=== PATIENT | male | born 1945 | race Caucasian/White ===

== ENCOUNTER 2017-05-07 02:17 | Inpatient (IN) | payer MEDICARE, OTHER ==
[~2017-05-07] VITALS: Ht 177.8 cm; Wt 106.2 kg
[2017-05-07] MEDS ORDERED: PIPERACILLIN/TAZO/PMX 3.375GM 50 ML IVPB ONE (02:30)
[2017-05-07] MEDS ORDERED: VANCOMYCIN 1,900 MG in SODIUM CHLORIDE 0.9% 250 ML IV ONE (02:30)
[2017-05-07] MEDS ORDERED: VANCOMYCIN PER PHARMACY IV ONE (02:30)
[2017-05-07] MEDS ORDERED: SODIUM CHLORIDE 0.9% 1,000ML IVBOLUS ONE ×3 (02:30→06:00)
[2017-05-07] MEDS ORDERED: LEVO50TA5 PO (02:33)
[2017-05-07] MEDS ORDERED: METO25TA35 PO (02:33)
[2017-05-07] MEDS ORDERED: GLIP10TA13 PO (02:33)
[2017-05-07] MEDS ORDERED: SIMV40TA3 PO (02:33)
[2017-05-07] MEDS ORDERED: APIX5TAB PO (02:33)
[2017-05-07] MEDS ORDERED: CHOL200021 PO (02:33)
[2017-05-07] MEDS ORDERED: LOSA25TA5 PO (02:33)
[2017-05-07] MEDS ORDERED: FURO80TA3 PO (02:33)
[2017-05-07] MEDS ORDERED: ALLO300T PO (02:33)
[2017-05-07 02:42] LABS: HEMATOCRIT 36.8 % (39.2-51.8); HEMOGLOBIN 11.4 g/dL (13.7-18.0); WHITE BLOOD COUNT 13.7 x10^3/uL (3.4-10)
[2017-05-07 02:53] LABS: ASPARTATE AMINO TRANSFERASE 25 U/L (15-37); BLOOD UREA NITROGEN 41 mg/dL (7-18)
[2017-05-07] MEDS ORDERED: PIPERACILLIN/TAZO/PMX 3.375GM 50 ML ONE (03:02)
[2017-05-07 03:05] LABS: IS PT STATUS REG ER OR PRE ER? YES
[2017-05-07] MEDS ORDERED: MIDAZOLAM HCL 25 MG in SODIUM CHLORIDE 0.9% 245 ML IV PRN ×2 (03:18→07:30)
[2017-05-07 04:10] LABS: DAU SCREEN DISCLAIMER
[2017-05-07] MEDS ORDERED: MIDAZOLAM 1 MG/ML, 5ML ONE ×3 (04:14→08:00)
[2017-05-07 04:51] LABS: ABG COLLECTION SITE LEFT RADIAL; COLLATERAL CIRCULATION TESTING NORMAL
[2017-05-07] MEDS ORDERED: SODIUM CHLORIDE 0.9% 1,000 ML IV SCH (05:30)
[2017-05-07] MEDS ORDERED: MIDAZOLAM 1 MG/ML, 5ML IVPush ONE ×3 (05:30)
[2017-05-07] MEDS ORDERED: MIDAZOLAM 1 MG/ML, 2ML IVPush ONE ×2 (05:30)
[2017-05-07] MEDS ORDERED: PROPOFOL 100 ML IV PRN (05:30)
[2017-05-07] MEDS ORDERED: FENTANYL PF 100 MCG/2ML ONE (05:53)
[2017-05-07] MEDS ORDERED: FENTANYL PF 100 MCG/2ML IV ONE (06:00)
[2017-05-07] MEDS ORDERED: SODIUM CHLORIDE 0.9% 1,000 ML IV ONE (06:19)
[2017-05-07] MEDS ORDERED: ONDANSETRON 2MG/ML, 2ML IVPush PRN ×2 (06:30→07:30)
[2017-05-07] MEDS ORDERED: BISACODYL 10 MG SUPP PR PRN (07:30)
[2017-05-07] MEDS ORDERED: POLYETHYLENE GLYCOL 17 GM PACKET PO PRN (07:30)
[2017-05-07] MEDS ORDERED: SENNOSIDES 8.8 MG/5 ML ORAL SOL NG PRN (07:30)
[2017-05-07] MEDS ORDERED: LACTULOSE 20 GM/30 ML UDC NG PRN (07:30)
[2017-05-07] MEDS ORDERED: PHARMACY MAY ADJ FOR RENAL FX MC SCH (07:30)
[2017-05-07] MEDS: INSULIN ASPART 100 UNITS/ML, PEN SQ-INSULIN SCH ×4 (07:30→21:51)
[2017-05-07] MEDS ORDERED: LIDOCAINE-MPF 1%, 2ML ENDO PRN (07:30)
[2017-05-07] MEDS ORDERED: SENNA/DOCUSATE TABLET NG PRN (07:30)
[2017-05-07] MEDS ORDERED: ACETAMINOPHEN 325 MG TABLET PO PRN (07:30)
[2017-05-07] MEDS ORDERED: OXYcodone IR 5MG TABLET PO PRN (07:30)
[2017-05-07] MEDS ORDERED: LORazepam 2 MG/ML, 1ML IVPush PRN (07:30)
[2017-05-07] MEDS ORDERED: morphine SULFATE 10 MG/ML, 1ML IVPush PRN (07:30)
[2017-05-07] MEDS ORDERED: ALBUTEROL/IPRATROPIUM 2.5MG/0.5MG, 3 ML ONE ×2 (07:32→10:47)
[2017-05-07] MEDS: ALBUTEROL/IPRATROPIUM 2.5MG/0.5MG, 3 ML INLINE SCH ×5 (07:40→23:00)
[2017-05-07] MEDS ORDERED: PROPOFOL 10 MG/ML, 100ML IV ONE (08:00)
[2017-05-07] MEDS ORDERED: ETOMIDATE 20 MG/10 ML ONE (08:00)
[2017-05-07] MEDS ORDERED: ROCURONIUM 10 MG/ML ONE (08:00)
[2017-05-07] MEDS: NOREPINEPHRINE 4 MG in SODIUM CHLORIDE 0.9% 246 ML IV PRN ×2 (08:04→23:36)
[2017-05-07] MEDS: SODIUM CHLORIDE 0.9% 1,000 ML IV SCH ×3 (08:13→23:36)
[2017-05-07] MEDS: VANCOMYCIN 50 MG/ML ORAL SUSP PO SCH ×3 (08:33→20:10)
[2017-05-07] MEDS: HEPARIN 5,000 UNITS/ML, 1ML SQ SCH ×3 (08:34→23:01)
[2017-05-07] MEDS: SENNA/DOCUSATE TABLET PO SCH (08:34)
[2017-05-07] MEDS: PROPOFOL 100 ML IV PRN ×2 (09:49→20:10)
[2017-05-07 10:25] LABS: IS PT STATUS REG ER OR PRE ER? NO
[2017-05-07] MEDS: PANTOPRAZOLE 40 MG IV IVPush SCH (11:05)
[2017-05-07] MEDS: LACTULOSE 20 GM/30 ML UDC NG SCH ×3 (11:05→21:42)
[2017-05-07 13:40] LABS: IS PT STATUS REG ER OR PRE ER? NO
[2017-05-07] MEDS: HYDROCORTISONE 100 MG INJ. IVPush SCH ×2 (15:09→23:00)
[2017-05-08] MEDS: VANCOMYCIN 50 MG/ML ORAL SUSP PO SCH ×4 (01:41→20:40)
[2017-05-08] MEDS: ALBUTEROL/IPRATROPIUM 2.5MG/0.5MG, 3 ML INLINE SCH ×6 (02:06→23:00)
[2017-05-08 04:00] VITALS: BP 118/60
[2017-05-08 04:12] LABS: HEMATOCRIT 34.1 % (39.2-51.8); HEMOGLOBIN 10.7 g/dL (13.7-18.0); WHITE BLOOD COUNT 8.1 x10^3/uL (3.4-10)
[2017-05-08 04:21] LABS: ASPARTATE AMINO TRANSFERASE 14 U/L (15-37); BLOOD UREA NITROGEN 40 mg/dL (7-18)
[2017-05-08] MEDS: HYDROCORTISONE 100 MG INJ. IVPush SCH ×3 (06:11→22:05)
[2017-05-08] MEDS: PROPOFOL 100 ML IV PRN ×3 (06:48→17:48)
[2017-05-08] MEDS: HEPARIN 5,000 UNITS/ML, 1ML SQ SCH ×3 (07:59→23:59)
[2017-05-08] MEDS: SODIUM CHLORIDE 0.9% 1,000 ML IV SCH ×3 (08:00→22:05)
[2017-05-08] MEDS: PANTOPRAZOLE 40 MG IV IVPush SCH (08:00)
[2017-05-08] MEDS: NOREPINEPHRINE 4 MG in SODIUM CHLORIDE 0.9% 246 ML IV PRN (08:09)
[2017-05-08] MEDS: INSULIN ASPART 100 UNITS/ML, PEN SQ-INSULIN SCH ×4 (08:14→20:48)
[2017-05-08] MEDS: SENNA/DOCUSATE TABLET PO SCH (09:00)
[2017-05-08] MEDS: LACTULOSE 20 GM/30 ML UDC NG SCH ×3 (09:21→20:40)
[2017-05-08] MEDS: LEVOTHYROXINE 100 MCG INJ IVPush SCH (09:21)
[2017-05-08] MEDS ORDERED: LIDOCAINE 1%, 20ML ONE (10:58)
[2017-05-08 11:41] LABS: CYTOLOGY BODY FLUID RECD INTO PATHOLOGY; CYTOLOGY BODY FLUID SOURCE PLEURAL FLUID
[2017-05-08 13:05] LABS: CELLS COUNTED 24; DILUTION 3; WBC SQUARES COUNTED 9
[2017-05-08] MEDS ORDERED: SENNA/DOCUSATE TABLET NG PRN (20:00)
[2017-05-08] MEDS ORDERED: ONDANSETRON 2MG/ML, 2ML IVPush PRN (20:00)
[2017-05-08] MEDS ORDERED: morphine SULFATE 10 MG/ML, 1ML IVPush PRN (20:00)
[2017-05-08] MEDS ORDERED: SENNOSIDES 8.8 MG/5 ML ORAL SOL NG PRN (20:00)
[2017-05-08] MEDS ORDERED: PHARMACY MAY ADJ FOR RENAL FX MC SCH (20:00)
[2017-05-08] MEDS ORDERED: ACETAMINOPHEN 325 MG TABLET PO PRN (20:00)
[2017-05-08] MEDS ORDERED: LORazepam 2 MG/ML, 1ML IVPush PRN (20:00)
[2017-05-08] MEDS ORDERED: POLYETHYLENE GLYCOL 17 GM PACKET PO PRN (20:00)
[2017-05-08] MEDS ORDERED: LACTULOSE 20 GM/30 ML UDC NG PRN (20:00)
[2017-05-08] MEDS ORDERED: BISACODYL 10 MG SUPP PR PRN (20:00)
[2017-05-09] MEDS: VANCOMYCIN 50 MG/ML ORAL SUSP PO SCH ×4 (02:14→19:44)
[2017-05-09] MEDS: ALBUTEROL/IPRATROPIUM 2.5MG/0.5MG, 3 ML INLINE SCH ×6 (03:00→21:42)
[2017-05-09 04:30] LABS: HEMATOCRIT 33.3 % (39.2-51.8); HEMOGLOBIN 10.3 g/dL (13.7-18.0); WHITE BLOOD COUNT 4.8 x10^3/uL (3.4-10)
[2017-05-09 04:41] LABS: BLOOD UREA NITROGEN 39 mg/dL (7-18)
[2017-05-09 05:00] LABS: ABG COLLECTION SITE ARTERIAL LINE
[2017-05-09 05:02] VITALS: BP 124/68
[2017-05-09] MEDS: PROPOFOL 100 ML IV PRN ×4 (05:14→19:50)
[2017-05-09] MEDS: HYDROCORTISONE 100 MG INJ. IVPush SCH ×3 (06:17→22:31)
[2017-05-09] MEDS: SODIUM CHLORIDE 0.9% 1,000 ML IV SCH ×3 (06:17→23:46)
[2017-05-09] MEDS: LEVOTHYROXINE 100 MCG INJ IVPush SCH (06:17)
[2017-05-09] MEDS: INSULIN ASPART 100 UNITS/ML, PEN SQ-INSULIN SCH ×4 (07:30→19:46)
[2017-05-09] MEDS: HEPARIN 5,000 UNITS/ML, 1ML SQ SCH ×3 (08:05→23:46)
[2017-05-09] MEDS: PANTOPRAZOLE 40 MG IV IVPush SCH (08:05)
[2017-05-09] MEDS ORDERED: VANCOMYCIN PER PHARMACY MC PRN (09:00)
[2017-05-09] MEDS: SENNA/DOCUSATE TABLET PO SCH (09:00)
[2017-05-09] MEDS ORDERED: PHARMACOKINETIC MONITORING MC PRN (09:00)
[2017-05-09] MEDS: LACTULOSE 20 GM/30 ML UDC NG SCH ×3 (10:38→21:33)
[2017-05-09] MEDS: PIPERACILLIN/TAZO/PMX 3.375GM 50 ML IV SCH ×3 (10:38→21:33)
[2017-05-09] MEDS: VANCOMYCIN 1,900 MG in SODIUM CHLORIDE 0.9% 250 ML IV SCH (10:39)
[2017-05-10] MEDS: VANCOMYCIN 50 MG/ML ORAL SUSP PO SCH (00:58)
[2017-05-10] MEDS: ALBUTEROL/IPRATROPIUM 2.5MG/0.5MG, 3 ML INLINE SCH ×6 (02:19→22:29)
[2017-05-10] MEDS: PIPERACILLIN/TAZO/PMX 3.375GM 50 ML IV SCH ×4 (03:04→22:24)
[2017-05-10] MEDS: PROPOFOL 100 ML IV PRN ×4 (03:05→20:57)
[2017-05-10 03:53] VITALS: BP 154/76
[2017-05-10 04:29] LABS: ABG COLLECTION SITE RIGHT RADIAL; COLLATERAL CIRCULATION TESTING NORMAL
[2017-05-10 04:44] LABS: HEMATOCRIT 34.8 % (39.2-51.8); HEMOGLOBIN 10.7 g/dL (13.7-18.0); WHITE BLOOD COUNT 7.8 x10^3/uL (3.4-10)
[2017-05-10 04:45] LABS: BLOOD UREA NITROGEN 37 mg/dL (7-18)
[2017-05-10] MEDS: HYDROCORTISONE 100 MG INJ. IVPush SCH ×3 (06:09→20:58)
[2017-05-10] MEDS: LEVOTHYROXINE 100 MCG INJ IVPush SCH (06:10)
[2017-05-10] MEDS: INSULIN ASPART 100 UNITS/ML, PEN SQ-INSULIN SCH ×4 (06:13→20:57)
[2017-05-10] MEDS: PANTOPRAZOLE 40 MG IV IVPush SCH (07:37)
[2017-05-10] MEDS: HEPARIN 5,000 UNITS/ML, 1ML SQ SCH ×2 (07:37→16:55)
[2017-05-10] MEDS: SODIUM CHLORIDE 0.9% 1,000 ML IV SCH ×2 (07:47→16:56)
[2017-05-10] MEDS: LACTULOSE 20 GM/30 ML UDC NG SCH ×3 (09:09→20:57)
[2017-05-10] MEDS: SENNA/DOCUSATE TABLET PO SCH (09:10)
[2017-05-10] MEDS: VANCOMYCIN 1,900 MG in SODIUM CHLORIDE 0.9% 250 ML IV SCH (20:58)
[2017-05-11] MEDS: SODIUM CHLORIDE 0.9% 1,000 ML IV SCH ×3 (00:01→21:14)
[2017-05-11] MEDS: HEPARIN 5,000 UNITS/ML, 1ML SQ SCH ×3 (00:03→18:38)
[2017-05-11] MEDS: ALBUTEROL/IPRATROPIUM 2.5MG/0.5MG, 3 ML INLINE SCH ×6 (01:51→21:41)
[2017-05-11] MEDS: PROPOFOL 100 ML IV PRN ×4 (02:27→23:29)
[2017-05-11] MEDS: PIPERACILLIN/TAZO/PMX 3.375GM 50 ML IV SCH ×4 (02:27→21:15)
[2017-05-11 04:23] VITALS: BP 117/61
[2017-05-11 04:46] LABS: HEMATOCRIT 31.8 % (39.2-51.8); HEMOGLOBIN 9.9 g/dL (13.7-18.0); WHITE BLOOD COUNT 9.2 x10^3/uL (3.4-10)
[2017-05-11 04:58] LABS: BLOOD UREA NITROGEN 33 mg/dL (7-18)
[2017-05-11 05:56] LABS: ABG COLLECTION SITE RIGHT RADIAL; COLLATERAL CIRCULATION TESTING NORMAL
[2017-05-11] MEDS: LEVOTHYROXINE 100 MCG INJ IVPush SCH (06:09)
[2017-05-11] MEDS: HYDROCORTISONE 100 MG INJ. IVPush SCH ×3 (06:10→22:23)
[2017-05-11] MEDS ORDERED: MORPHINE SULFATE 4 MG/ML, 1ML ONE (07:34)
[2017-05-11] MEDS: PANTOPRAZOLE 40 MG IV IVPush SCH (08:36)
[2017-05-11] MEDS: INSULIN ASPART 100 UNITS/ML, PEN SQ-INSULIN SCH ×4 (08:36→21:16)
[2017-05-11] MEDS: LACTULOSE 20 GM/30 ML UDC NG SCH ×3 (10:05→21:15)
[2017-05-11] MEDS: POTASSIUM CHLORIDE 20 MEQ TAB.ER.PRT PO SCH ×2 (10:05→21:15)
[2017-05-11] MEDS: QUETIAPINE 25MG TABLET PO SCH ×2 (10:06→18:38)
[2017-05-11] MEDS: SENNA/DOCUSATE TABLET PO SCH (10:07)
[2017-05-11] MEDS: MORPHINE SULFATE 4 MG/ML, 1ML IVPush PRN ×3 (10:08→21:10)
[2017-05-12] MEDS: ALBUTEROL/IPRATROPIUM 2.5MG/0.5MG, 3 ML INLINE SCH ×6 (01:28→22:44)
[2017-05-12] MEDS: QUETIAPINE 25MG TABLET PO SCH ×3 (01:52→16:04)
[2017-05-12] MEDS: HEPARIN 5,000 UNITS/ML, 1ML SQ SCH ×3 (01:53→20:37)
[2017-05-12 04:21] LABS: ABG COLLECTION SITE LEFT RADIAL; COLLATERAL CIRCULATION TESTING NORMAL
[2017-05-12 04:50] LABS: HEMATOCRIT 34.1 % (39.2-51.8); HEMOGLOBIN 10.7 g/dL (13.7-18.0); WHITE BLOOD COUNT 10.7 x10^3/uL (3.4-10)
[2017-05-12] MEDS: PIPERACILLIN/TAZO/PMX 3.375GM 50 ML IV SCH ×4 (04:56→20:48)
[2017-05-12] MEDS: MORPHINE SULFATE 4 MG/ML, 1ML IVPush PRN ×3 (04:57→14:53)
[2017-05-12] MEDS: SODIUM CHLORIDE 0.9% 1,000 ML IV SCH ×3 (04:57→18:00)
[2017-05-12 04:59] VITALS: BP 130/88
[2017-05-12 04:59] LABS: BLOOD UREA NITROGEN 40 mg/dL (7-18)
[2017-05-12] MEDS: HYDROCORTISONE 100 MG INJ. IVPush SCH ×3 (06:29→22:54)
[2017-05-12] MEDS: LEVOTHYROXINE 100 MCG INJ IVPush SCH (06:30)
[2017-05-12] MEDS: PANTOPRAZOLE 40 MG IV IVPush SCH (08:10)
[2017-05-12] MEDS: INSULIN ASPART 100 UNITS/ML, PEN SQ-INSULIN SCH ×4 (08:10→21:00)
[2017-05-12] MEDS: LACTULOSE 20 GM/30 ML UDC NG SCH ×3 (10:52→20:48)
[2017-05-12] MEDS: VANCOMYCIN 1,900 MG in SODIUM CHLORIDE 0.9% 250 ML IV SCH (10:54)
[2017-05-12] MEDS: SODIUM CHLORIDE 0.45% 1,000 ML IV SCH ×2 (11:53→21:53)
[2017-05-12] MEDS ORDERED: HALOPERIDOL 5 MG/ML IV PRN (16:00)
[2017-05-12] MEDS: PROPOFOL 100 ML IV PRN ×2 (17:27→23:01)
[2017-05-12] MEDS: RIFAXIMIN 550 MG TABLET PO SCH (20:49)
[2017-05-13] MEDS: QUETIAPINE 25MG TABLET PO SCH ×3 (01:15→17:55)
[2017-05-13] MEDS: SODIUM CHLORIDE 0.9% 1,000 ML IV SCH (02:00)
[2017-05-13] MEDS: ALBUTEROL/IPRATROPIUM 2.5MG/0.5MG, 3 ML INLINE SCH ×3 (02:53→11:00)
[2017-05-13] MEDS: PIPERACILLIN/TAZO/PMX 3.375GM 50 ML IV SCH ×4 (03:06→20:44)
[2017-05-13 04:00] VITALS: BP 98/56
[2017-05-13] MEDS: HEPARIN 5,000 UNITS/ML, 1ML SQ SCH ×3 (04:16→20:17)
[2017-05-13 04:57] LABS: ABG COLLECTION SITE LEFT RADIAL; COLLATERAL CIRCULATION TESTING NORMAL
[2017-05-13] MEDS: HYDROCORTISONE 100 MG INJ. IVPush SCH ×2 (06:11→18:48)
[2017-05-13] MEDS: LEVOTHYROXINE 100 MCG INJ IVPush SCH (06:11)
[2017-05-13 06:30] LABS: HEMATOCRIT 34.2 % (39.2-51.8); HEMOGLOBIN 10.6 g/dL (13.7-18.0); WHITE BLOOD COUNT 13.9 x10^3/uL (3.4-10)
[2017-05-13] MEDS: INSULIN ASPART 100 UNITS/ML, PEN SQ-INSULIN SCH ×4 (06:33→20:43)
[2017-05-13 06:39] LABS: BLOOD UREA NITROGEN 46 mg/dL (7-18)
[2017-05-13 06:46] LABS: DIFF TOTAL CELLS COUNTED 100 CELL DIFF
[2017-05-13 07:16] LABS: VERIFY COUNTS? YES
[2017-05-13] MEDS: RIFAXIMIN 550 MG TABLET PO SCH ×2 (09:36→23:47)
[2017-05-13] MEDS: PANTOPRAZOLE 40 MG IV IVPush SCH (09:36)
[2017-05-13] MEDS: SODIUM CHLORIDE 0.45% 1,000 ML IV SCH ×2 (09:39→20:48)
[2017-05-13] MEDS ORDERED: ALBUTEROL SULFATE 2.5 MG/3 ML NPPB PRN (12:30)
[2017-05-13] MEDS ORDERED: FUROSEMIDE 40 MG/4 ML IV ONE (17:00)
[2017-05-13] MEDS ORDERED: ACETYLCYSTEINE 20%, 4ML NPPB SCH (20:00)
[2017-05-13] MEDS: ALBUTEROL SULFATE 2.5 MG/3 ML NPPB SCH (20:21)
[2017-05-14] MEDS: QUETIAPINE 25MG TABLET PO SCH ×3 (01:00→17:00)
[2017-05-14] MEDS: PIPERACILLIN/TAZO/PMX 3.375GM 50 ML IV SCH ×4 (03:08→20:30)
[2017-05-14 04:00] VITALS: BP 98/56
[2017-05-14] MEDS: HEPARIN 5,000 UNITS/ML, 1ML SQ SCH ×3 (04:04→20:08)
[2017-05-14 04:49] LABS: BLOOD UREA NITROGEN 47 mg/dL (7-18)
[2017-05-14 04:52] LABS: ABG COLLECTION SITE LEFT RADIAL; COLLATERAL CIRCULATION TESTING NORMAL
[2017-05-14 05:06] LABS: HEMATOCRIT 36.2 % (39.2-51.8); HEMOGLOBIN 11.2 g/dL (13.7-18.0)
[2017-05-14 05:36] LABS: DIFF TOTAL CELLS COUNTED 100 CELL DIFF
[2017-05-14 05:38] LABS: POLYCHROMASIA 1+; VERIFY COUNTS? YES
[2017-05-14 05:39] LABS: ANISOCYTOSIS 1+
[2017-05-14] MEDS: HYDROCORTISONE 100 MG INJ. IVPush SCH ×2 (06:15→18:38)
[2017-05-14] MEDS: LEVOTHYROXINE 100 MCG INJ IVPush SCH (06:15)
[2017-05-14] MEDS: SODIUM CHLORIDE 0.45% 1,000 ML IV SCH ×2 (06:15→18:37)
[2017-05-14] MEDS: INSULIN ASPART 100 UNITS/ML, PEN SQ-INSULIN SCH ×4 (06:34→21:00)
[2017-05-14] MEDS: ALBUTEROL SULFATE 2.5 MG/3 ML NPPB SCH ×4 (07:54→19:20)
[2017-05-14] MEDS: PANTOPRAZOLE 40 MG IV IVPush SCH (08:29)
[2017-05-14] MEDS: OXYcodone IR 5MG TABLET PO PRN (08:29)
[2017-05-14] MEDS: RIFAXIMIN 550 MG TABLET PO SCH ×2 (08:29→21:00)
[2017-05-14] MEDS ORDERED: FUROSEMIDE 40 MG/4 ML IV ONE (09:30)
[2017-05-14] MEDS ORDERED: VANCOMYCIN 1,900 MG in SODIUM CHLORIDE 0.9% 250 ML IV SCH (10:00)
[2017-05-14] MEDS: ACETYLCYSTEINE 20%, 4ML NPPB SCH ×3 (11:48→19:20)
[2017-05-14] MEDS ORDERED: SODIUM CHLORIDE 0.9%, 250ML IVBOLUS ONE ×2 (13:30→19:00)
[2017-05-15] MEDS: QUETIAPINE 25MG TABLET PO SCH ×3 (01:00→17:36)
[2017-05-15] MEDS: SODIUM CHLORIDE 0.45% 1,000 ML IV SCH ×2 (03:24→17:54)
[2017-05-15] MEDS: PIPERACILLIN/TAZO/PMX 3.375GM 50 ML IV SCH ×4 (03:24→21:08)
[2017-05-15 04:00] VITALS: BP 112/53
[2017-05-15] MEDS: HEPARIN 5,000 UNITS/ML, 1ML SQ SCH ×3 (04:01→21:07)
[2017-05-15 04:36] LABS: ABG COLLECTION SITE RIGHT RADIAL; COLLATERAL CIRCULATION TESTING NORMAL
[2017-05-15] MEDS: HYDROCORTISONE 100 MG INJ. IVPush SCH ×2 (05:56→17:35)
[2017-05-15] MEDS: LEVOTHYROXINE 100 MCG INJ IVPush SCH (05:57)
[2017-05-15 06:01] LABS: HEMATOCRIT 35.6 % (39.2-51.8); HEMOGLOBIN 11.1 g/dL (13.7-18.0); WHITE BLOOD COUNT 14.4 x10^3/uL (3.4-10)
[2017-05-15 06:26] LABS: BLOOD UREA NITROGEN 47 mg/dL (7-18)
[2017-05-15] MEDS: INSULIN ASPART 100 UNITS/ML, PEN SQ-INSULIN SCH ×4 (07:00→21:00)
[2017-05-15] MEDS: ALBUTEROL SULFATE 2.5 MG/3 ML NPPB SCH ×4 (07:25→20:00)
[2017-05-15] MEDS: ACETYLCYSTEINE 20%, 4ML NPPB SCH (07:25)
[2017-05-15] MEDS: PANTOPRAZOLE 40 MG IV IVPush SCH (07:58)
[2017-05-15] MEDS: RIFAXIMIN 550 MG TABLET PO SCH ×2 (09:00→21:08)
[2017-05-15] MEDS ORDERED: VANCOMYCIN 2,000 MG in SODIUM CHLORIDE 0.9% 500 ML IV ONE (11:00)
[2017-05-15] MEDS ORDERED: SENNA/DOCUSATE TABLET NG PRN (19:00)
[2017-05-15] MEDS ORDERED: ACETAMINOPHEN 325 MG TABLET PO PRN (19:00)
[2017-05-15] MEDS ORDERED: SENNOSIDES 8.8 MG/5 ML ORAL SOL NG PRN (19:00)
[2017-05-15] MEDS ORDERED: PHARMACY MAY ADJ FOR RENAL FX MC SCH (19:00)
[2017-05-15] MEDS ORDERED: PHARMACOKINETIC MONITORING MC PRN (19:00)
[2017-05-15] MEDS ORDERED: VANCOMYCIN PER PHARMACY MC PRN (19:00)
[2017-05-15] MEDS ORDERED: ONDANSETRON 2MG/ML, 2ML IVPush PRN (19:00)
[2017-05-15] MEDS ORDERED: BISACODYL 10 MG SUPP PR PRN (19:00)
[2017-05-15] MEDS ORDERED: POLYETHYLENE GLYCOL 17 GM PACKET PO PRN (19:00)
[2017-05-15] MEDS: METOPROLOL TARTRATE 25 MG TABLET PO SCH (21:08)
[2017-05-16] MEDS: QUETIAPINE 25MG TABLET PO SCH ×3 (00:40→17:51)
[2017-05-16] MEDS: PIPERACILLIN/TAZO/PMX 3.375GM 50 ML IV SCH ×4 (02:50→20:45)
[2017-05-16 03:56] LABS: HEMATOCRIT 36.4 % (39.2-51.8); HEMOGLOBIN 11.2 g/dL (13.7-18.0)
[2017-05-16 04:04] LABS: BLOOD UREA NITROGEN 59 mg/dL (7-18)
[2017-05-16 04:14] VITALS: BP 106/52
[2017-05-16] MEDS: HEPARIN 5,000 UNITS/ML, 1ML SQ SCH ×3 (04:40→20:45)
[2017-05-16] MEDS: HYDROCORTISONE 100 MG INJ. IVPush SCH (05:59)
[2017-05-16] MEDS: LEVOTHYROXINE 100 MCG INJ IVPush SCH (05:59)
[2017-05-16] MEDS: METOPROLOL TARTRATE 25 MG TABLET PO SCH ×2 (06:01→17:51)
[2017-05-16] MEDS: SODIUM CHLORIDE 0.45% 1,000 ML IV SCH (06:06)
[2017-05-16] MEDS: ALBUTEROL SULFATE 2.5 MG/3 ML NPPB SCH ×4 (08:03→18:55)
[2017-05-16] MEDS: PANTOPRAZOLE 40 MG IV IVPush SCH (08:13)
[2017-05-16] MEDS: INSULIN ASPART 100 UNITS/ML, PEN SQ-INSULIN SCH ×3 (08:14→23:04)
[2017-05-16] MEDS: RIFAXIMIN 550 MG TABLET PO SCH ×2 (09:09→20:45)
[2017-05-16] MEDS ORDERED: ALBUMIN HUMAN 25% 100 ML IV ONE (09:30)
[2017-05-16] MEDS ORDERED: PHARMACOKINETIC MONITORING MC PRN (10:00)
[2017-05-16] MEDS ORDERED: FUROSEMIDE 40 MG/4 ML IV ONE (11:00)
[2017-05-17] MEDS: QUETIAPINE 25MG TABLET PO SCH (02:41)
[2017-05-17] MEDS: PIPERACILLIN/TAZO/PMX 3.375GM 50 ML IV SCH ×4 (03:25→23:37)
[2017-05-17] MEDS: HEPARIN 5,000 UNITS/ML, 1ML SQ SCH ×3 (03:52→21:30)
[2017-05-17 04:00] VITALS: BP 117/61
[2017-05-17 04:20] LABS: HEMATOCRIT 33.7 % (39.2-51.8); HEMOGLOBIN 10.6 g/dL (13.7-18.0); WHITE BLOOD COUNT 12.3 x10^3/uL (3.4-10)
[2017-05-17 04:23] LABS: BLOOD UREA NITROGEN 70 mg/dL (7-18)
[2017-05-17 04:37] LABS: ABG COLLECTION SITE RIGHT RADIAL; COLLATERAL CIRCULATION TESTING NORMAL
[2017-05-17] MEDS: INSULIN ASPART 100 UNITS/ML, PEN SQ-INSULIN SCH ×4 (05:29→23:38)
[2017-05-17] MEDS: METOPROLOL TARTRATE 25 MG TABLET PO SCH (05:30)
[2017-05-17] MEDS: LEVOTHYROXINE 100 MCG INJ IVPush SCH (05:30)
[2017-05-17] MEDS ORDERED: POTASSIUM CHLORIDE 20 MEQ TAB.ER.PRT PO ONE (07:00)
[2017-05-17] MEDS: ALBUTEROL SULFATE 2.5 MG/3 ML NPPB SCH ×3 (07:43→19:36)
[2017-05-17] MEDS: PANTOPRAZOLE 40 MG IV IVPush SCH (08:26)
[2017-05-17] MEDS: HYDROCORTISONE 100 MG INJ. IVPush SCH (09:30)
[2017-05-17] MEDS: RIFAXIMIN 550 MG TABLET PO SCH ×2 (09:30→21:30)
[2017-05-17] MEDS: ALBUMIN HUMAN 25% 100 ML IV SCH ×2 (10:20→17:21)
[2017-05-17 11:15] VITALS: BP 147/92
[2017-05-17 14:26] VITALS: BP 144/79
[2017-05-17 19:10] VITALS: BP 131/79
[2017-05-18] MEDS: ALBUMIN HUMAN 25% 100 ML IV SCH ×3 (01:44→21:36)
[2017-05-18 02:22] VITALS: BP 128/78
[2017-05-18 05:35] LABS: HEMATOCRIT 33.5 % (39.2-51.8); HEMOGLOBIN 10.6 g/dL (13.7-18.0); WHITE BLOOD COUNT 13.4 x10^3/uL (3.4-10)
[2017-05-18 05:47] LABS: BLOOD UREA NITROGEN 65 mg/dL (7-18)
[2017-05-18] MEDS ORDERED: DIPHENHYDRAMINE 50 MG/ML, 1ML IVPush ONE (06:00)
[2017-05-18] MEDS: INSULIN ASPART 100 UNITS/ML, PEN SQ-INSULIN SCH ×4 (06:21→21:36)
[2017-05-18] MEDS: PIPERACILLIN/TAZO/PMX 3.375GM 50 ML IV SCH ×3 (06:22→17:54)
[2017-05-18] MEDS: HEPARIN 5,000 UNITS/ML, 1ML SQ SCH (06:23)
[2017-05-18] MEDS: LEVOTHYROXINE 50 MCG TABLET PO SCH (06:33)
[2017-05-18 07:07] VITALS: BP 138/78
[2017-05-18] MEDS: ALBUTEROL SULFATE 2.5 MG/3 ML NPPB SCH ×5 (07:50→21:50)
[2017-05-18] MEDS: RIFAXIMIN 550 MG TABLET PO SCH ×2 (08:33→21:40)
[2017-05-18] MEDS: PANTOPRAZOLE 40 MG IV IVPush SCH (08:33)
[2017-05-18] MEDS: HYDROCORTISONE 100 MG INJ. IVPush SCH (08:33)
[2017-05-18 14:05] VITALS: BP 149/84
[2017-05-18 19:39] VITALS: BP 152/84
[2017-05-19] VITALS (8 sets, daily range): BP systolic 125–158; BP diastolic 64–83
[2017-05-19] MEDS: PIPERACILLIN/TAZO/PMX 3.375GM 50 ML IV SCH ×4 (01:59→21:03)
[2017-05-19] MEDS: ALBUTEROL SULFATE 2.5 MG/3 ML NPPB SCH ×7 (02:31→22:00)
[2017-05-19] MEDS: LEVOTHYROXINE 50 MCG TABLET PO SCH (05:54)
[2017-05-19] MEDS: INSULIN ASPART 100 UNITS/ML, PEN SQ-INSULIN SCH ×3 (05:54→18:33)
[2017-05-19] MEDS: LORazepam 2 MG/ML, 1ML IVPush PRN (05:59)
[2017-05-19 06:00] LABS: HEMOGLOBIN 10.1 g/dL (13.7-18.0); WHITE BLOOD COUNT 16.1 x10^3/uL (3.4-10)
[2017-05-19 06:05] LABS: BLOOD UREA NITROGEN 62 mg/dL (7-18)
[2017-05-19 06:08] LABS: ASPARTATE AMINO TRANSFERASE 13 U/L (15-37)
[2017-05-19] MEDS: HYDROCORTISONE 100 MG INJ. IVPush SCH (07:58)
[2017-05-19] MEDS: RIFAXIMIN 550 MG TABLET PO SCH ×2 (07:58→21:03)
[2017-05-19] MEDS: PANTOPRAZOLE 40 MG IV IVPush SCH (07:58)
[2017-05-19] MEDS: ALBUMIN HUMAN 25% 100 ML IV SCH ×2 (09:45→17:40)
[2017-05-19] MEDS: FUROSEMIDE 40 MG/4 ML IV SCH ×2 (10:50→17:40)
[2017-05-19] MEDS ORDERED: METOPROLOL 1 MG/ML, 5ML IVPush ONE (12:30)
[2017-05-19] MEDS: METOPROLOL TARTRATE 25 MG TABLET PO SCH (17:40)
[2017-05-19] MEDS: POTASSIUM CHLORIDE 20 MEQ TAB.ER.PRT PO SCH (18:34)
[2017-05-20] MEDS: ALBUMIN HUMAN 25% 100 ML IV SCH ×4 (00:21→23:57)
[2017-05-20] MEDS: INSULIN ASPART 100 UNITS/ML, PEN SQ-INSULIN SCH ×5 (00:21→22:59)
[2017-05-20 00:44] VITALS: BP 125/71
[2017-05-20] MEDS: PIPERACILLIN/TAZO/PMX 3.375GM 50 ML IV SCH ×6 (01:42→21:08)
[2017-05-20 02:33] LABS: ABG COLLECTION SITE LEFT RADIAL; COLLATERAL CIRCULATION TESTING NORMAL
[2017-05-20 03:00] LABS: ABG COLLECTION SITE LEFT BRACHIAL
[2017-05-20] MEDS: ALBUTEROL SULFATE 2.5 MG/3 ML NPPB SCH ×6 (06:00→22:13)
[2017-05-20] MEDS: LEVOTHYROXINE 50 MCG TABLET PO SCH (06:00)
[2017-05-20] MEDS: METOPROLOL TARTRATE 25 MG TABLET PO SCH ×2 (06:00→17:26)
[2017-05-20] MEDS: FUROSEMIDE 40 MG/4 ML IV SCH (06:01)
[2017-05-20 07:30] LABS: ASPARTATE AMINO TRANSFERASE 10 U/L (15-37); BLOOD UREA NITROGEN 64 mg/dL (7-18)
[2017-05-20] MEDS: PANTOPROZOLE 40MG TABLET PO SCH (07:30)
[2017-05-20] MEDS: POTASSIUM CHLORIDE 20 MEQ TAB.ER.PRT PO SCH (08:00)
[2017-05-20] MEDS ORDERED: HYDROCORTISONE 100 MG INJ. IVPush SCH (08:00)
[2017-05-20 08:11] LABS: HEMATOCRIT 31.5 % (39.2-51.8); HEMOGLOBIN 9.9 g/dL (13.7-18.0); WHITE BLOOD COUNT 15.5 x10^3/uL (3.4-10)
[2017-05-20] MEDS ORDERED: MAGNESIUM SULFATE PMX 2GM/50ML 50 ML IV ONE (09:00)
[2017-05-20] MEDS: RIFAXIMIN 550 MG TABLET PO SCH ×2 (09:00→21:00)
[2017-05-20] MEDS ORDERED: FUROSEMIDE 40 MG/4 ML IV SCH (09:00)
[2017-05-20] MEDS ORDERED: FUROSEMIDE 100 MG/10 ML IV ONE (09:00)
[2017-05-20] MEDS: methylPREDNISolone SOD SUCC 40 MG/ML IV SCH ×2 (09:45→17:23)
[2017-05-20] MEDS ORDERED: LIDOCAINE 1%, 20ML ONE (09:55)
[2017-05-20 11:55] LABS: CYTOLOGY BODY FLUID RECD INTO PATHOLOGY; CYTOLOGY BODY FLUID SOURCE PLEURAL FLUID
[2017-05-20] MEDS ORDERED: FILTER 0.22 MICRON IV PRN (14:00)
[2017-05-20] MEDS ORDERED: ALBUTEROL SULFATE 2.5 MG/3 ML NPPB PRN (14:00)
[2017-05-20] MEDS ORDERED: AMIODARONE 150 MG in DEXTROSE 5% 100 ML IV ONE (14:30)
[2017-05-20] MEDS: AMIODARONE 900 MG in DEXTROSE 5% 482 ML IV PRN (14:56)
[2017-05-20] MEDS: LORazepam 2 MG/ML, 1ML IVPush PRN (22:53)
[2017-05-21] MEDS: methylPREDNISolone SOD SUCC 40 MG/ML IV SCH ×3 (01:06→17:01)
[2017-05-21] MEDS: PIPERACILLIN/TAZO/PMX 3.375GM 50 ML IV SCH ×4 (01:41→20:33)
[2017-05-21] MEDS: ALBUTEROL SULFATE 2.5 MG/3 ML NPPB SCH ×6 (01:53→21:21)
[2017-05-21 04:37] LABS: HEMATOCRIT 30.9 % (39.2-51.8); HEMOGLOBIN 9.7 g/dL (13.7-18.0); WHITE BLOOD COUNT 6.4 x10^3/uL (3.4-10)
[2017-05-21 04:44] LABS: ASPARTATE AMINO TRANSFERASE 9 U/L (15-37); BLOOD UREA NITROGEN 72 mg/dL (7-18)
[2017-05-21 05:06] LABS: SRA, LOW DOSE HEPARIN 2 % (0-20)
[2017-05-21] MEDS: INSULIN ASPART 100 UNITS/ML, PEN SQ-INSULIN SCH ×4 (05:57→23:06)
[2017-05-21] MEDS: METOPROLOL TARTRATE 25 MG TABLET PO SCH ×2 (05:58→16:57)
[2017-05-21] MEDS: LEVOTHYROXINE 50 MCG TABLET PO SCH (05:58)
[2017-05-21] MEDS: PANTOPROZOLE 40MG TABLET PO SCH (07:30)
[2017-05-21] MEDS: POTASSIUM CHLORIDE 20 MEQ TAB.ER.PRT PO SCH ×2 (08:00→16:28)
[2017-05-21] MEDS: ALBUMIN HUMAN 25% 100 ML IV SCH ×2 (08:01→17:01)
[2017-05-21] MEDS ORDERED: DIPHENHYDRAMINE 50 MG/ML, 1ML IVPush ONE (08:30)
[2017-05-21] MEDS ORDERED: POTASSIUM CHLORIDE 40 MEQ in SODIUM CHLORIDE 0.9% 500 ML IV ONE (08:30)
[2017-05-21] MEDS: RIFAXIMIN 550 MG TABLET PO SCH ×2 (09:00→21:00)
[2017-05-21] MEDS: FUROSEMIDE 40 MG/4 ML IV SCH ×2 (10:22→20:34)
[2017-05-21] MEDS ORDERED: LIDOCAINE 1%, 20ML ONE (11:25)
[2017-05-21] MEDS: AMIODARONE 900 MG in DEXTROSE 5% 482 ML IV PRN (12:30)
[2017-05-21] MEDS ORDERED: FILTER 0.22 MICRON IV PRN (12:30)
[2017-05-21 12:34] LABS: ABG COLLECTION SITE RIGHT BRACHIAL; COLLATERAL CIRCULATION TESTING NORMAL
[2017-05-22] MEDS: ALBUMIN HUMAN 25% 100 ML IV SCH ×3 (00:28→15:14)
[2017-05-22] MEDS: methylPREDNISolone SOD SUCC 40 MG/ML IV SCH ×3 (00:40→15:43)
[2017-05-22] MEDS: PIPERACILLIN/TAZO/PMX 3.375GM 50 ML IV SCH ×4 (01:24→19:44)
[2017-05-22] MEDS: ALBUTEROL SULFATE 2.5 MG/3 ML NPPB SCH ×6 (01:48→21:38)
[2017-05-22 02:50] LABS: ABG COLLECTION SITE RIGHT BRACHIAL
[2017-05-22] MEDS: LORazepam 2 MG/ML, 1ML IVPush PRN ×2 (02:57→09:28)
[2017-05-22] MEDS: INSULIN ASPART 100 UNITS/ML, PEN SQ-INSULIN SCH ×4 (05:38→23:06)
[2017-05-22 05:48] LABS: BLOOD UREA NITROGEN 81 mg/dL (7-18)
[2017-05-22] MEDS: LEVOTHYROXINE 50 MCG TABLET PO SCH (06:00)
[2017-05-22] MEDS: METOPROLOL TARTRATE 25 MG TABLET PO SCH ×2 (06:00→16:17)
[2017-05-22] MEDS: PANTOPRAZOLE 40 MG IV IVPush SCH (08:42)
[2017-05-22] MEDS ORDERED: HEPARIN 5,000 UNITS/ML, 1ML IV ONE (09:00)
[2017-05-22] MEDS: RIFAXIMIN 550 MG TABLET PO SCH ×2 (09:00→21:12)
[2017-05-22] MEDS: HEPARIN 25,000 UNITS/500ML PMX 500 ML IV PRN (09:54)
[2017-05-22] MEDS ORDERED: FUROSEMIDE 40 MG/4 ML IV ONE ×2 (10:30→23:00)
[2017-05-22] MEDS ORDERED: FUROSEMIDE 100 MG/10 ML IV ONE (10:30)
[2017-05-22] MEDS ORDERED: LORazepam 2 MG/ML, 1ML IVPush PRN (15:00)
[2017-05-22] MEDS ORDERED: SENNOSIDES 8.8 MG/5 ML ORAL SOL NG PRN (15:00)
[2017-05-22] MEDS ORDERED: BISACODYL 10 MG SUPP PR PRN (15:00)
[2017-05-22] MEDS ORDERED: ALBUTEROL SULFATE 2.5 MG/3 ML NPPB PRN (15:00)
[2017-05-22] MEDS ORDERED: ACETAMINOPHEN 325 MG TABLET PO PRN (15:00)
[2017-05-22] MEDS ORDERED: ONDANSETRON 2MG/ML, 2ML IVPush PRN (15:00)
[2017-05-22] MEDS ORDERED: POLYETHYLENE GLYCOL 17 GM PACKET PO PRN (15:00)
[2017-05-22] MEDS ORDERED: HALOPERIDOL 5 MG/ML IV PRN (15:00)
[2017-05-22] MEDS ORDERED: SENNA/DOCUSATE TABLET NG PRN (15:00)
[2017-05-22] MEDS ORDERED: POTASSIUM CHLORIDE 20 MEQ TAB.ER.PRT PO ONE ×2 (16:00→22:00)
[2017-05-22] MEDS ORDERED: POTASSIUM CHLORIDE 20 MEQ PACKET PO ONE (18:30)
[2017-05-22] MEDS ORDERED: FILTER 0.22 MICRON IV PRN (18:30)
[2017-05-22] MEDS ORDERED: FUROSEMIDE 40 MG/4 ML ONE (19:19)
[2017-05-22] MEDS: AMIODARONE 900 MG in DEXTROSE 5% 482 ML IV PRN (21:12)
[2017-05-22] MEDS: OXYcodone IR 5MG TABLET PO PRN (23:09)
[2017-05-23] MEDS: HEPARIN 5,000 UNITS/ML, 1ML IV PRN ×2 (00:23→20:02)
[2017-05-23] MEDS: OXYcodone IR 5MG TABLET PO PRN ×3 (00:23→19:51)
[2017-05-23] MEDS: ALBUMIN HUMAN 25% 100 ML IV SCH ×2 (00:24→08:43)
[2017-05-23] MEDS: methylPREDNISolone SOD SUCC 40 MG/ML IV SCH ×3 (00:24→18:41)
[2017-05-23] MEDS: PIPERACILLIN/TAZO/PMX 3.375GM 50 ML IV SCH ×4 (01:12→19:51)
[2017-05-23] MEDS: ALBUTEROL SULFATE 2.5 MG/3 ML NPPB SCH ×6 (02:08→22:15)
[2017-05-23] MEDS: LEVOTHYROXINE 50 MCG TABLET PO SCH (04:52)
[2017-05-23] MEDS: METOPROLOL TARTRATE 25 MG TABLET PO SCH ×2 (04:52→18:00)
[2017-05-23] MEDS: INSULIN ASPART 100 UNITS/ML, PEN SQ-INSULIN SCH ×4 (04:52→23:25)
[2017-05-23 05:36] LABS: BLOOD UREA NITROGEN 94 mg/dL (7-18)
[2017-05-23 05:41] LABS: ASPARTATE AMINO TRANSFERASE 14 U/L (15-37)
[2017-05-23 05:45] LABS: HEMATOCRIT 28.8 % (39.2-51.8); HEMOGLOBIN 9.1 g/dL (13.7-18.0); WHITE BLOOD COUNT 11.2 x10^3/uL (3.4-10)
[2017-05-23] MEDS: RIFAXIMIN 550 MG TABLET PO SCH ×2 (08:43→19:51)
[2017-05-23] MEDS: PANTOPRAZOLE 40 MG IV IVPush SCH (08:43)
[2017-05-23] MEDS: HEPARIN 25,000 UNITS/500ML PMX 500 ML IV PRN (10:21)
[2017-05-23] MEDS ORDERED: PHARMACY MAY ADJ FOR RENAL FX MC SCH (10:30)
[2017-05-23] MEDS ORDERED: ETOMIDATE 20 MG/10 ML IVPush ONE (11:00)
[2017-05-23] MEDS ORDERED: MIDAZOLAM 1 MG/ML, 5ML IVPush ONE (11:00)
[2017-05-23 11:45] LABS: ABG COLLECTION SITE RIGHT RADIAL; COLLATERAL CIRCULATION TESTING NORMAL
[2017-05-23] MEDS ORDERED: MIDAZOLAM 1 MG/ML, 5ML ONE (14:00)
[2017-05-23] MEDS ORDERED: PROPOFOL 10 MG/ML, 100ML IV ONE (14:00)
[2017-05-23] MEDS ORDERED: ETOMIDATE 20 MG/10 ML ONE (14:00)
[2017-05-23] MEDS ORDERED: NOREPINEPHRINE 4 MG in SODIUM CHLORIDE 0.9% 246 ML IV PRN (19:30)
[2017-05-23] MEDS: PROPOFOL 100 ML IV PRN (19:57)
[2017-05-24] MEDS: methylPREDNISolone SOD SUCC 40 MG/ML IV SCH ×2 (01:39→07:58)
[2017-05-24] MEDS: PIPERACILLIN/TAZO/PMX 3.375GM 50 ML IV SCH ×2 (01:40→07:24)
[2017-05-24] MEDS: HEPARIN 25,000 UNITS/500ML PMX 500 ML IV PRN (01:47)
[2017-05-24] MEDS: OXYcodone IR 5MG TABLET PO PRN (02:01)
[2017-05-24] MEDS: ALBUTEROL SULFATE 2.5 MG/3 ML NPPB SCH ×2 (02:29→06:35)
[2017-05-24 04:28] LABS: ABG COLLECTION SITE RIGHT RADIAL; COLLATERAL CIRCULATION TESTING NORMAL
[2017-05-24 04:58] LABS: HEMATOCRIT 26.3 % (39.2-51.8); HEMOGLOBIN 8.3 g/dL (13.7-18.0); WHITE BLOOD COUNT 8.3 x10^3/uL (3.4-10)
[2017-05-24 05:25] LABS: BLOOD UREA NITROGEN 103 mg/dL (7-18)
[2017-05-24] MEDS: LEVOTHYROXINE 50 MCG TABLET PO SCH (05:56)
[2017-05-24] MEDS: INSULIN ASPART 100 UNITS/ML, PEN SQ-INSULIN SCH (05:56)
[2017-05-24] MEDS: METOPROLOL TARTRATE 25 MG TABLET PO SCH (05:56)
[2017-05-24] MEDS ORDERED: POTASSIUM CHLORIDE 10% 40 MEQ/30 ML UDC PO ONE (06:00)
[2017-05-24] MEDS ORDERED: SODIUM CHLORIDE 0.9%, 500ML IVBOLUS ONE (06:00)
[2017-05-24] MEDS: PANTOPRAZOLE 40 MG IV IVPush SCH (07:58)
[2017-05-24] MEDS: RIFAXIMIN 550 MG TABLET PO SCH (07:58)
[2017-05-24] MEDS: PROPOFOL 100 ML IV PRN (08:52)
[2017-05-24] MEDS ORDERED: ATROPINE OPHTH SOLN 1%, 5ML PO PRN (10:00)
[2017-05-24] MEDS ORDERED: LORazepam 2 MG/ML, 1ML ONE (10:52)
[2017-05-24] MEDS ORDERED: LORazepam 2 MG/ML, 1ML IVPush PRN (11:00)
[2017-05-24] MEDS ORDERED: LORazepam 10 MG in DEXTROSE 5% 245 ML IV SCH (11:00)
== END 2017-05-24 14:56 | disposition expired | DRG 870 ==
LOC: ED 03:46 → EDIP 06:19 → ICU 07:30 → 5SO 05-17 11:11 → CCU 05-20 08:14
PROVIDERS: ADMIT Internal Medicine; ATTEND Family Medicine
PROC: 0BH17EZ Insertion of Endotracheal Airway into Trachea, Via Natural or Artificial Opening (ICD-10-PCS; principal; 2017-05-07)
PROC: 5A1955Z Respiratory Ventilation, Greater than 96 Consecutive Hours (ICD-10-PCS; 2017-05-07)
PROC: 03HY32Z Insertion of Monitoring Device into Upper Artery, Percutaneous Approach (ICD-10-PCS; 2017-05-07)
PROC: 4A133B1 Monitoring of Arterial Pressure, Peripheral, Percutaneous Approach (ICD-10-PCS; 2017-05-07)
PROC: 4A133J1 Monitoring of Arterial Pulse, Peripheral, Percutaneous Approach (ICD-10-PCS; 2017-05-07)
PROC: 0T9B70Z Drainage of Bladder with Drainage Device, Via Natural or Artificial Opening (ICD-10-PCS; 2017-05-07)
PROC: 0W993ZX Drainage of Right Pleural Cavity, Percutaneous Approach, Diagnostic (ICD-10-PCS; 2017-05-08)
PROC: 02HV33Z Insertion of Infusion Device into Superior Vena Cava, Percutaneous Approach (ICD-10-PCS; 2017-05-11)
PROC: B548ZZA Ultrasonography of Superior Vena Cava, Guidance (ICD-10-PCS; 2017-05-11)
PROC: 0DH63UZ Insertion of Feeding Device into Stomach, Percutaneous Approach (ICD-10-PCS; 2017-05-15)
PROC: 0W993ZX Drainage of Right Pleural Cavity, Percutaneous Approach, Diagnostic (ICD-10-PCS; 2017-05-20)
DX: A41.9 Sepsis, unspecified organism (principal); N17.0 Acute kidney failure with tubular necrosis; J96.21 Acute and chronic respiratory failure with hypoxia; E43 Unspecified severe protein-calorie malnutrition; J18.9 Pneumonia, unspecified organism; J90 Pleural effusion, not elsewhere classified; Z99.11 Dependence on respirator [ventilator] status; G93.41 Metabolic encephalopathy; I13.0 Hypertensive heart and chronic kidney disease with heart failure and stage 1 through stage 4 chronic kidney disease, or unspecified chronic kidney disease; K56.60 Unspecified intestinal obstruction; E87.0 Hyperosmolality and hypernatremia; E27.40 Unspecified adrenocortical insufficiency; K56.7 Ileus, unspecified; I50.32 Chronic diastolic (congestive) heart failure; J44.0 Chronic obstructive pulmonary disease with (acute) lower respiratory infection; J98.11 Atelectasis; K72.90 Hepatic failure, unspecified without coma; N18.3 Chronic kidney disease, stage 3 (moderate); E78.5 Hyperlipidemia, unspecified; K74.60 Unspecified cirrhosis of liver; D69.6 Thrombocytopenia, unspecified; E03.9 Hypothyroidism, unspecified; E11.22 Type 2 diabetes mellitus with diabetic chronic kidney disease; E55.9 Vitamin D deficiency, unspecified; I48.2 Chronic atrial fibrillation; K21.9 Gastro-esophageal reflux disease without esophagitis; K52.9 Noninfective gastroenteritis and colitis, unspecified; K57.90 Diverticulosis of intestine, part unspecified, without perforation or abscess without bleeding; K80.20 Calculus of gallbladder without cholecystitis without obstruction; M10.9 Gout, unspecified; N28.1 Cyst of kidney, acquired; R13.10 Dysphagia, unspecified; Z51.5 Encounter for palliative care; I95.9 Hypotension, unspecified; Z88.8 Allergy status to other drugs, medicaments and biological substances; Z68.33 Body mass index [BMI] 33.0-33.9, adult; Z78.1 Physical restraint status; Z79.899 Other long term (current) drug therapy
CPT/HCPCS: 31500; 32555; 36415; 36569; 36600; 70450; 71010; 71250; 74000; 74176; 76937; 77001; 80048; 80053; 80202; 80307; 81001; 82040; 82140; 82378; 82533; 82542; 82803; 82962; 83036; 83605; 83615; 83735; 83880; 83986; 84100; 84145; 84157; 84443; 84478; 84484; 85025; 85520; 85610; 87040; 87046; 87070; 87075; 87077; 87081; 87086; 87102; 87116; 87186; 87205; 87206; 87324; 87899; 88112; 88305; 89051; 89055; 93005; 93308; 93321; 93325; 93970; 94002; 94003; 94150; 94640; 94660; 96365; 96366; 96367; 96375; 99292; J1644; J1815; J1940; J2060; J2250; J2543; J2704; J3010; J3370; J3480; J3490; J7060; J7608; J7613; J7620; P9047; 92523-GN; C1751; C9113; J0282; J1200; J1630; J1720; J2270; J2920; J3475; J7030; J7040; J7050